=== PATIENT | female | born 1950 | race Caucasian/White ===

== ENCOUNTER → 2016-07-09 | Outpatient (REF) ==
[2016-07-09 16:50] LABS: THYROID STIMULATING HORMONE 5.09 uIU/mL (0.465-4.680)
== END ==
LOC: ZLAB.WCH 15:06
PROVIDERS: Family Medicine
DX: Z01.89 Encounter for other specified special examinations (principal)

== ENCOUNTER → 2016-10-29 | Outpatient (REF) ==
[2016-10-29 17:03] LABS: THYROID STIMULATING HORMONE 2.82 uIU/mL (0.465-4.680)
== END ==
LOC: ZLAB.WCH 16:16
PROVIDERS: Nurse Practitioner Family
DX: Z01.89 Encounter for other specified special examinations (principal)

== ENCOUNTER → 2017-12-12 | Outpatient (REF) | LOC: ZLAB.WCH 14:33 | DX: Z01.89 Encounter for other specified special examinations (principal) ==

== ENCOUNTER → 2018-01-31 | Outpatient (CLI) | payer MEDICARE | LOC: SUN.DIA 10:16 | DX: E11.9 Type 2 diabetes mellitus without complications (principal); E78.5 Hyperlipidemia, unspecified; I10 Essential (primary) hypertension; E66.9 Obesity, unspecified | CPT/HCPCS: G0108 ==

== ENCOUNTER → 2018-02-23 | Outpatient (CLI) | payer MEDICARE | LOC: SUN.DIA 10:15 | DX: E11.9 Type 2 diabetes mellitus without complications (principal); I10 Essential (primary) hypertension; E78.5 Hyperlipidemia, unspecified; E66.9 Obesity, unspecified ==

== ENCOUNTER → 2018-03-16 | Outpatient (CLI) | payer MEDICARE | LOC: SUN.DIA 09:30 | DX: E11.9 Type 2 diabetes mellitus without complications (principal); I10 Essential (primary) hypertension; E78.5 Hyperlipidemia, unspecified; E66.9 Obesity, unspecified | CPT/HCPCS: G0109 ==

== ENCOUNTER → 2018-03-30 | Outpatient (CLI) | payer MEDICARE | LOC: SUN.DIA 03-23 13:15 | DX: E11.9 Type 2 diabetes mellitus without complications (principal); I10 Essential (primary) hypertension; E78.5 Hyperlipidemia, unspecified; E66.9 Obesity, unspecified | CPT/HCPCS: G0109 ==

== ENCOUNTER → 2018-04-06 | Outpatient (CLI) | payer MEDICARE | LOC: SUN.DIA 09:30 | DX: E11.9 Type 2 diabetes mellitus without complications (principal); I10 Essential (primary) hypertension; E78.5 Hyperlipidemia, unspecified; E66.9 Obesity, unspecified | CPT/HCPCS: G0109 ==

== ENCOUNTER → 2018-04-17 | Outpatient (REF) ==
[2018-04-17 18:36] LABS: THYROID STIMULATING HORMONE 1.7 uIU/mL (0.465-4.680)
== END ==
LOC: ZLAB.WCH 16:31
PROVIDERS: Family Medicine
DX: Z01.89 Encounter for other specified special examinations (principal)

== ENCOUNTER → 2018-08-25 | Outpatient (REF) | LOC: ZLAB.WCH 16:00 | DX: Z01.89 Encounter for other specified special examinations (principal) ==